=== PATIENT | female | born 1995 | race Caucasian/White ===

== ENCOUNTER 2020-07-10 13:02 | Emergency (ER) | payer OTHER, SELFPAY ==
[2020-07-10 13:07] VITALS: BP 123/77; PULSE 65; RESP 16; TEMP 36.1; O2SAT 100
--- NOTE | 2020-07-10 14:03 | ED.HEATRA ---
HPI - Head Injury General Chief complaint: Head Injury Stated complaint: HEAD INJ Time Seen by Provider: 07/10/20 13:42 Source: patient Mode of arrival: ambulatory Limitations: no limitations History of Present Illness HPI Narrative: 21-year-old female 2 days ago she fell while playing hockey, she was wearing a helmet, she fell backwards and struck the back of her head, she did not lose consciousness After a short break she was able to carry on a finish the game Since then she has noticed that she feels a little fuzzy and has had some trouble concentrating She does not have much of a headache, does not have neck pain, does not have any focal neurologic symptoms, has no amnesia and no vomiting MD Complaint: head injury Onset (ago): day(s) Mechanism of Injury: fall and helmet used Loss of Consciousness: no Related Data Allergies Allergy/AdvReac Type Severity Reaction Status Date / Time No Known Allergies Allergy Verified 07/10/20 13:09 Review of Systems Review of Systems: All systems reviewed & are unremarkable except as noted in HPI and below Constitutional: Constitutional: Denies chills, Denies fatigue, Denies fever(s), Denies headache(s) and Denies weakness Eyes: Eyes: Reports no additional eye complaints and Denies change in vision ENT: Denies headache(s), Denies epistaxis, Denies nasal congestion and Denies sore throat Cardiovascular: Cardiovascular: Denies chest pain, Denies leg edema, Denies palpitations and Denies dyspnea Respiratory: Respiratory: Denies cough, Denies dyspnea and Denies wheezing Gastrointestinal: Gastrointestinal: Denies abdominal pain, Denies diarrhea, Denies nausea and Denies vomiting Genitourinary: Genitourinary: Denies hematuria, Denies urinary frequency and Denies dysuria Musculoskeletal: Musculoskeletal: Denies deformity, Denies arthralgias, Denies joint swelling, Denies muscle weakness and Denies numbness Integumentary/Breasts: Skin/Breast: Denies rash and Denies wounds Neurologic: Denies headache(s), Denies focal weakness, Denies numbness and Denies weakness Psychiatric: Psychiatric: Reports no additional psychiatric complaints Endocrine: Endocrine: Denies fatigue and Denies palpitations Hematologic/Lymphatic: Hematologic/Lymphatic: Denies easy bleeding and Denies easy bruising Allergic/Immunologic: Allergic/Immunologic: Denies wheezing Exam Const: General: no acute distress, well developed, alert and awake Nutritional Appearance: well nourished Orientation/consciousness: patient oriented x3 (alert) Limitations: no limitations HENMT: Head: normal to inspection, normocephalic, atraumatic, no contusions and no hematomas Ears: external ears normal General nose exam: No nasal discharge present and no epistaxis Face and sinus: face symmetric Eyes: Conjunctivae: conjunctivae normal Sclera: sclerae normal Pupils: Equal, round and reactive pupils present EOM: EOMs intact bilaterally Other: Sharp discs Neck: Neck: normal visual inspection, supple and no JVD Other: Supple, full range of motion, nontender Chest: Chest palpation & inspection: deferred Resp: Effort & Inspection: normal respiratory effort Auscultation: other (BS =) Cardio: Heart sounds: no gallops GI: Inspection: normal to inspection Back/Spine/Pelvis: Back: no CVA tenderness Thoracic/Lumbar Spine: thoracic and lumbar spine normal to inspection Skin: General skin exam: normal color and no rashes or lesions noted Neuro: General: patient oriented x3 (alert), moves all extremities, no meningeal signs and no focal motor deficits Cranial nerves: Yes CN's II-XII intact bilaterally, Yes Nystagmus not present and Yes facial symmetry Speech: normal speech Other: Normal Romberg, normal [id number] Extrem: General: normal to inspection, full ROM and no pedal edema Psych: Affect: normal affect Course Course Emergency Course: Discussed with patient that her very mild and nonspecific symptoms might in
== END 2020-07-10 14:31 | disposition home or self-care (01) ==
PROVIDERS: Emergency Provider Emergency Medicine
DX: S06.0X0A Concussion without loss of consciousness, initial encounter (principal); Y93.51 Activity, roller skating (inline) and skateboarding; V00.111A Fall from in-line roller-skates, initial encounter
CPT/HCPCS: 99282

== ENCOUNTER 2022-09-07 14:21 | Emergency (ER) | payer OTHER, SELFPAY ==
--- NOTE | ~2022-09-07 | XR_ITS ---
XR wrist RT min 3V DATE: 09/07/2022 14:47 INDICATION: Injury 2 weeks ago. Pain. TECHNIQUE: 4 views COMPARISON: None FINDINGS: No fracture or dislocation, periosteal reaction or bone destruction, joint space narrowing, erosive change or chondrocalcinosis. IMPRESSION: Negative Reviewed, dictated and finalized at location A. IMPRESSION: Negative
[2022-09-07 14:36] VITALS: BP 110/60; PULSE 102; RESP 16; TEMP 36.2; O2SAT 100
--- NOTE | 2022-09-07 15:01 | ED.UPPEXIN ---
HPI - Extremity Injury (Upper) General Chief Complaint: Extremity Injury, Upper Stated Complaint: Pain Wrist Rt Hand Time Seen by Provider: 09/07/22 14:50 Source: patient Mode of arrival: ambulatory Limitations: no limitations History of Present Illness HPI narrative: Patient is a 27-year-old female has had right wrist pain for 2 weeks after waking up and was bent. Patient states she uses a brace during the day that was helping. Reports pain is still constant and worsened today. Patient has been taking ibuprofen and using ice for pain with no relief. Denies any weakness, numbness, tingling in hand or wrist, just pain on palpation and when bending at wrist. Denies any bruising or swelling. Related Data Home Medications Medication Instructions Recorded Confirmed sertraline 50 mg tablet 50 mg PO HS 09/07/22 09/07/22 Allergies Allergy/AdvReac Type Severity Reaction Status Date / Time sulfamethizole AdvReac Mild Hives Verified 09/07/22 14:46 trimethoprim AdvReac Mild Hives Verified 09/07/22 14:46 Review of Systems Review of Systems: All systems reviewed & are unremarkable except as noted in HPI and below Constitutional: Constitutional: Denies body ache(s), Denies fever(s), Denies headache(s), Denies malaise and Denies weakness Eyes: Eyes: Reports no additional eye complaints and Denies loss of vision ENT: Reports system reviewed and no additional complaints, except as documented, Denies otalgia, Denies headache(s), Denies nasal discharge, Denies sinus pain and Denies sore throat Cardiovascular: Cardiovascular: Reports no additional cardiovascular complaints, Denies chest pain, Denies irregular heart rhythm and Denies dyspnea Respiratory: Respiratory: Reports no additional respiratory complaints and Denies dyspnea Gastrointestinal: Gastrointestinal: Reports no additional gastrointestinal complaints, Denies abdominal pain, Denies melena, Denies hematochezia, Denies diarrhea, Denies nausea and Denies vomiting Musculoskeletal: Musculoskeletal: Denies back pain, Denies myalgias and Reports arthralgias (right wrist) Integumentary/Breasts: Skin/Breast: Reports system reviewed and no additional complaints, except as docu, Denies pruritus and Denies rash Neurologic: Reports system reviewed and no additional complaints, except as documented, Denies headache(s), Denies loss of vision and Denies weakness Psychiatric: Psychiatric: Reports no additional psychiatric complaints PMFSH Social History Social History (System 05/10/21 @ 12:32 by Sunny Acosta) Smoking status: Never smoker Alcohol intake: never Comments At time of signature, agree with nursing past medical, surgical, social and family history. There is no relevant family history pertinent to the presenting complaint. Exam Const: General: cooperative, healthy appearing, comfortable, no acute distress and well nourished Nutritional Appearance: well nourished Orientation/consciousness: patient oriented x3 Limitations: no limitations HENMT: Head: normal to inspection, normocephalic and atraumatic Ears: external ears normal Face/Nose/Sinus: Normal external nose present, normal facial exam and face symmetric Face and sinus: normal facial exam and face symmetric Mouth: Yes lip normal Eyes: General: appearance normal, both eyes and all related structures Alignment and Position: alignment normal and position normal Eyelids: eyelids normal Pupils: Equal, round and reactive pupils present EOM: EOMs intact bilaterally Neck: Neck: normal visual inspection and full ROM Chest: Chest palpation & inspection: normal inspection of the chest Resp: Effort & Inspection: normal respiratory effort and able to speak in complete sentences Auscultation: clear to auscultation bilaterally Cardio: Rate: regular rate Rhythm: regular rhythm Heart sounds: S1 normal heart sound present and S2 normal heart sound present GI: Inspection: normal to inspection Skin: General skin exam: no
== END 2022-09-07 15:22 | disposition home or self-care (01) ==
PROVIDERS: Emergency Provider Nurse Practitioner Family
DX: M25.531 Pain in right wrist (principal)
CPT/HCPCS: 73110; 99213; G0463

== ENCOUNTER 2023-06-13 10:47 | Emergency (ER) | payer OTHER, SELFPAY ==
[2023-06-13 11:44] VITALS: BP 106/60; PULSE 78; RESP 16; TEMP 36.6; O2SAT 100
--- NOTE | 2023-06-13 12:02 | ED.SKABFB ---
HPI - Skin/Abscess/Foreign Bdy General Chief complaint: Skin/Abscess/Foreign Body Stated complaint: Rash Time Seen by Provider: 06/13/23 11:54 Source: patient and RN notes reviewed Mode of arrival: ambulatory Limitations: no limitations History of Present Illness HPI narrative: Patient presents today complaining of pruritic rash around her mouth since she woke up this morning. She describes the rash as, ?puffy, tight, and pins and needles. ? States the only new products she started using was a week ago and was a new facial cleanser. She denies new foods, makeup, toothpaste, medications, household products, pets, or plant exposure. She tried some topical cortisone and an allergy pill without relief. Denies shortness of breath, difficulty swallowing, swelling in the mouth or lips. Related Data Home Medications Medication Instructions Recorded Confirmed sertraline 50 mg tablet 50 mg PO HS 09/07/22 06/13/23 prazosin 1 mg capsule 1 mg PO HS 06/13/23 06/13/23 Allergies Allergy/AdvReac Type Severity Reaction Status Date / Time sulfamethizole AdvReac Mild Hives Verified 06/13/23 11:41 trimethoprim AdvReac Mild Hives Verified 06/13/23 11:41 Review of Systems Review of Systems: CONSTITUTIONAL: Denies body aches, fever, chills, or sweats. EYES: Denies visual changes, redness, or discharge. ENT: Denies rhinorrhea, congestion, sore throat, or otalgia. CARDIOVASCULAR: Denies chest pain, palpitations, or edema. RESPIRATORY: Denies cough or dyspnea. GASTROINTESTINAL: Denies abdominal pain, nausea, vomiting, or diarrhea. GENITOURINARY: Denies dysuria or hematuria. SKIN: + perioral rash MUSCULOSKELETAL: Denies back pain, joint pain, or myalgia. NEUROLOGIC: Denies headache, numbness, tingling, or weakness. PSYCH: Denies depression or anxiety. [facility] Social History Social History Smoking status: Never smoker Alcohol intake: never Comments At time of signature, I have reviewed and agree with nursing past medical, surgical, social and family history unless otherwise noted. Please see nursing chart for further information. There is no relevant family history pertinent to the presenting complaint Exam Narrative: GENERAL: Well-appearing, well-nourished, and in no acute distress. HEAD: Normocephalic, atraumatic. EYES: EOMI. No redness or drainage. Conjunctivae normal. ENT: Mucous membranes pink and moist. Nares clear. No rhinorrhea. Throat normal. Uvula midline. NECK: Normal AROM. CHEST: No respiratory distress. EXTREMITIES: Normal range of motion. No edema. SKIN: Warm, dry. Capillary refill normal. Normal skin turgor. Mildly erythematous papular rash circumorally. No edema noted to the lips or circumoral skin. NEURO: No focal deficits. Alert and oriented x3. Gait steady. PSYCH: Normal affect. No signs of depression or anxiety. Course Course Level of Care: Express Care Visit Vital Signs Vital signs: Vital Signs Temperature 97.9 F 06/13/23 11:44 Pulse Rate 78 06/13/23 11:44 Respiratory Rate 16 06/13/23 11:44 Blood Pressure 106/60 06/13/23 11:44 Pulse Oximetry 100 06/13/23 11:44 Oxygen Delivery Room Air 06/13/23 11:44 Temperature 97.9 F 06/13/23 11:44 Pulse Rate 78 06/13/23 11:44 Respiratory Rate 16 06/13/23 11:44 Blood Pressure 106/60 06/13/23 11:44 Pulse Oximetry 100 06/13/23 11:44 Oxygen Delivery Room Air 06/13/23 11:44 Reviewed MDM - Skin/Abscess/Foreign Bdy MDM Narrative Medical decision making narrative: Patient has circumoral dermatitis and will be treated with prednisone. Instructed to use an antihistamine as well. She has no swelling of her mouth or mucous membranes. Likely culprit as her new facial wash. Instructed to stop using this in. Discussed symptoms that would warrant and ER visit. Anticipatory guidance given. Differential Diagnosis Differential diagnosis: Likely urt
== END 2023-06-13 12:11 | disposition home or self-care (01) ==
PROVIDERS: Emergency Provider Nurse Practitioner
DX: L30.9 Dermatitis, unspecified (principal); F41.9 Anxiety disorder, unspecified; F32.A Depression, unspecified
CPT/HCPCS: 99213; G0463